=== PATIENT | male | born 1975 | race Caucasian/White ===

== ENCOUNTER 2021-05-13 12:13 | Inpatient (IN) | payer MEDICAID ==
[2021-05-13] VITALS (17 sets, daily range): BP systolic 106–149; BP diastolic 55–85
[~2021-05-13] VITALS: Ht 190.5 cm; Wt 143.6 kg
[~2021-05-13 12:13] MED LIST: CLIN-97 PO; PRED20TA PO
[2021-05-13 13:06] LABS: CLARITY,URINE CLEAR (Clear); COLOR,URINE YELLOW (Yellow); GLUCOSE, URINE NEGATIVE (Neg); KETONES,URINE NEGATIVE (Neg); LEUKOCYTE ESTERASE ,URINE NEGATIVE (Neg); NITRITES, URINE NEGATIVE (Neg); OCCULT BLOOD,URINE NEGATIVE (Neg); PROTEIN,URINE NEGATIVE (Neg); UA COLLECTION TYPE CLN CATCH MIDSTREAM; UROBILINOGEN,URINE 0.2 E.U/dL (0.2-1.0)
[2021-05-13 13:13] LABS: BASOPHILS # (AUTO) 0.1 X10'3 (0-0.2); BASOPHILS % (AUTO) 0.4 % (0-1); EOSINOPHILS # (AUTO) 0.1 X10'3 (0-0.9); EOSINOPHILS % (AUTO) 0.4 % (0-6); HEMATOCRIT 49.1 % (42.0-52.0); HEMOGLOBIN 16.8 g/dl (14.0-17.9); LYMPHOCYTES # (AUTO) 2.4 X10'3 (1.1-4.8); LYMPHOCYTES % (AUTO) 13.9 % (21-51); MEAN CORPUSCULAR HEMOGLOBIN 30.6 PG (27.0-31.0); MEAN CORPUSCULAR HGB CONC 34.2 g/dL (33.0-36.5); MEAN CORPUSCULAR VOLUME 89.3 FL (78-98); MONOCYTES # (AUTO) 0.9 X10'3 (0-0.9); MONOCYTES % (AUTO) 5.4 % (2-12); NEUTROPHILS # (AUTO) 13.6 X10'3 (1.8-7.7); NEUTROPHILS % (AUTO) 79.9 % (42-75); PLATELET COUNT 226 X10'3 (140-440); RED BLOOD COUNT 5.49 X10'6 (4.70-6.10); WHITE BLOOD COUNT 17.1 X10'3 (4.5-11.0)
[2021-05-13 13:29] LABS: ALANINE AMINOTRANSFERASE 30 U/L (12-78); ALBUMIN 3.8 G/DL (3.4-5.0); ALBUMIN/GLOBULIN RATIO 0.9 (1.1-1.5); ALKALINE PHOSPHATASE 75 IU/L (46-116); ANION GAP 9 (8-16); ASPARTATE AMINO TRANSFERASE 11 U/L (10-37); BILIRUBIN,TOTAL 0.6 MG/DL (0.1-1.0); BLOOD UREA NITROGEN 9 MG/DL (7-18); BUN/CREATININE RATIO 8.4 (5.4-32.0); CALCIUM 8.9 MG/DL (8.5-10.1); CHLORIDE 106 MMOL/L (99-107); CREATININE 1.07 MG/DL (0.60-1.10); GLUCOSE 134 MG/DL (70-104); POTASSIUM 4.4 MMOL/L (3.5-5.1); SODIUM 142 MMOL/L (135-145); TOTAL CARBON DIOXIDE 26.8 MMOL/L (24-32); TOTAL PROTEIN 7.9 G/DL (6.4-8.2); eGFR 74 ML/MIN
[2021-05-13 13:44] LABS: PARTIAL THROMBOPLASTIN TIME 29 SECONDS (22-32)
[2021-05-13] MEDS ORDERED: morphine 4 MG/ML inj SYRINge IV ONE (13:45)
[2021-05-13] MEDS ORDERED: normal saline 1000ML IV soln IVB ONE (13:45)
[2021-05-13] MEDS ORDERED: ondansetron/PF 4mg/2ml inj IV ONE (13:45)
[2021-05-13] MEDS ORDERED: NO HOME MEDS (13:59)
[2021-05-13] MEDS ORDERED: metroNIDAZOLE-Flagyl 500mg/NS 100 ML IV STA (14:06)
[2021-05-13] MEDS ORDERED: levoFLOXACIN-Levaquin 500mg/D5 100 ML IV ONE (14:10)
[2021-05-13 14:12] LABS: TOTAL CELLS COUNTED 100
[2021-05-13 14:13] LABS: PLATELET ESTIMATE NORMAL; TOXIC GRANULATION 1+
[2021-05-13] MEDS ORDERED: HYDROcodone/acetaminophen 10/325mg tab PO PRN ×2 (15:00→17:30)
[2021-05-13] MEDS ORDERED: HYDROcodone/acetaminophen 5mg/325mg tablet PO PRN ×2 (15:00→17:30)
[2021-05-13] MEDS ORDERED: ondansetron/PF 4mg/2ml inj IV PRN ×2 (15:00→16:15)
[2021-05-13] MEDS ORDERED: morphine 2 MG/ML inj. syringe IV PRN ×3 (15:00→16:15)
[2021-05-13] MEDS ORDERED: acetaminophen 325mg tablet PO PRN ×2 (15:00)
[2021-05-13] MEDS ORDERED: mag hydrox/Alum hydrox/simeth 30ml oral suspension PO PRN (15:00)
[2021-05-13] MEDS ORDERED: magnesium hydroxide 30ml (MOM) UD suspension PO PRN (15:00)
[2021-05-13] MEDS ORDERED: rocuronium 10mg/ml inj IV ONE (15:34)
[2021-05-13] MEDS ORDERED: propofol inj 20 ML IV ONE (15:34)
[2021-05-13 15:39] LABS: LACTATE DEHYDROGENASE 201 U/L (85-227)
[2021-05-13] MEDS ORDERED: LIDOcaine 1% 30ml preserv. free vial ONE (15:42)
[2021-05-13] MEDS ORDERED: BUPIVAcaine 0.5% inj/PF 30 ML ONE (15:43)
[2021-05-13] MEDS ORDERED: BUPIVAcaine 0.5% inj/PF 30 ml vial IJ ONE (15:50)
[2021-05-13] MEDS ORDERED: morphine 4 MG/ML inj SYRINge IV PRN (16:15)
[2021-05-13] MEDS ORDERED: proCHLORperazine 10 MG/2 ml inj IV PRN (16:15)
[2021-05-13] MEDS ORDERED: ringers solution, lacted 1,000 ML IV SCH (16:15)
[2021-05-13] MEDS ORDERED: meperidine/PF 25mg/ml syringe IV PRN ×2 (16:15)
[2021-05-13] MEDS ORDERED: midazolam 1 mg/ML 2ml injection ONE (16:19)
[2021-05-13] MEDS ORDERED: fentaNYL/PF 50MCG/1 ML 2ML syringe ONE (16:19)
[2021-05-13] MEDS ORDERED: ceFOXitin 1000 MG inj ONE ×2 (16:50→16:51)
[2021-05-13] MEDS ORDERED: dexamethasone sod phosphate 4mg/ml inj. ONE (17:16)
[2021-05-13] MEDS ORDERED: ondansetron/PF 4mg/2ml inj ONE (17:16)
[2021-05-13] MEDS ORDERED: sugammadex 200mg/2ml injection IV ONE (17:27)
[2021-05-13] MEDS ORDERED: glycopyrrolate 0.2mg/ml inj ONE (17:27)
[2021-05-13] MEDS ORDERED: neostigmine methylsulfate 1 MG/ML 10ml vial ONE (17:27)
[2021-05-13] MEDS: meperidine/PF 25mg/ml syringe IV PRN ×3 (17:42→18:45)
--- NOTE | 2021-05-13 18:40 | NUR ---
Patient in room [facility]. I have received report from RADHA Alamo and had the opportunity to ask questions and assume patient care.
--- NOTE | 2021-05-13 18:57 | NUR ---
Report called to receiving nurse. Transferred via BED Belongings . Special Issues communicated to receiving nurse. AWAKE AND ORIENTED. VITALS STABLE. DRESSINGS DI. STATES PAIN IMPRUVING. TO SURGICAL [facility] 344B AT THIS TIME.
[2021-05-13] MEDS: metroNIDAZOLE-Flagyl 500mg/NS 100 ML IV SCH (19:55)
[2021-05-13] MEDS: heparin, porcine 5000 units/ml vial SQ SCH (20:13)
[2021-05-13] MEDS: docusate sod 100mg capsule PO SCH (20:15)
[2021-05-13] MEDS: dextrose 5%-1/2 normal saline 1,000 ML IV SCH (20:15)
[2021-05-14] MEDS: metroNIDAZOLE-Flagyl 500mg/NS 100 ML IV SCH ×2 (00:37→09:06)
[2021-05-14] MEDS: dextrose 5%-1/2 normal saline 1,000 ML IV SCH ×2 (01:00→10:13)
[2021-05-14 04:48] VITALS: BP 130/67
--- NOTE | 2021-05-14 06:20 | NUR ---
Patient in room [facility]. I have received report from RADHA Jett & RADHA Kilpatrick and had the opportunity to ask questions and assume patient care.
[2021-05-14 06:30] VITALS: BP 140/69
--- NOTE | 2021-05-14 06:42 | NUR ---
Problems reprioritized. Patient report given, questions answered & plan of care reviewed with RADHA Soler..
[2021-05-14 06:49] LABS: ANION GAP 10 (8-16); BLOOD UREA NITROGEN 11 MG/DL (7-18); BUN/CREATININE RATIO 10.2 (5.4-32.0); CALCIUM 8.8 MG/DL (8.5-10.1); CHLORIDE 106 MMOL/L (99-107); CREATININE 1.08 MG/DL (0.60-1.10); GLUCOSE 171 MG/DL (70-104); SODIUM 140 MMOL/L (135-145); TOTAL CARBON DIOXIDE 23.6 MMOL/L (24-32); eGFR 74 ML/MIN
[2021-05-14 06:51] LABS: POTASSIUM 4.6 MMOL/L (3.5-5.1)
[2021-05-14 06:55] LABS: BASOPHILS # (AUTO) 0.1 X10'3 (0-0.2); BASOPHILS % (AUTO) 0.3 % (0-1); EOSINOPHILS % (AUTO) 0 % (0-6); HEMATOCRIT 44.2 % (42.0-52.0); LYMPHOCYTES # (AUTO) 0.9 X10'3 (1.1-4.8); LYMPHOCYTES % (AUTO) 5.5 % (21-51); MEAN CORPUSCULAR HEMOGLOBIN 30.7 PG (27.0-31.0); MEAN CORPUSCULAR VOLUME 90.4 FL (78-98); MEAN PLATELET VOLUME 9.3 FL (7.4-10.4); MONOCYTES # (AUTO) 0.7 X10'3 (0-0.9); MONOCYTES % (AUTO) 4.5 % (2-12); NEUTROPHILS # (AUTO) 14.1 X10'3 (1.8-7.7); NEUTROPHILS % (AUTO) 89.7 % (42-75); PLATELET COUNT 196 X10'3 (140-440); RED BLOOD COUNT 4.89 X10'6 (4.70-6.10); WHITE BLOOD COUNT 15.7 X10'3 (4.5-11.0)
[2021-05-14] MEDS ORDERED: levoFLOXACIN-Levaquin 500mg/D5 100 ML IV SCH (08:00)
[2021-05-14] MEDS: docusate sod 100mg capsule PO SCH (09:07)
[2021-05-14] MEDS: heparin, porcine 5000 units/ml vial SQ SCH (09:08)
[2021-05-14] MEDS ORDERED: HYDR-3965 PO (10:36)
[2021-05-14 11:00] VITALS: BP 112/69
[2021-05-14 15:04] LABS: D-DIMER 0.56 MG/L FEU (0-0.50)
[2021-05-14 15:09] LABS: C-REACTIVE PROTEIN 19.16 MG/DL (0.0-0.5)
--- NOTE | 2021-05-14 15:20 | NUR ---
DC inst provided to pt & pt's . IV DC'd, tip intact. All belongings sent w/pt. WC to vehicle.
== END 2021-05-14 15:24 | disposition home or self-care (01) | DRG 234 ==
LOC: ER 12:13 → ED HOLD 15:04 → SUR 3N 19:15
PROVIDERS: ADMIT Internal Medicine; ATTEND Internal Medicine
PROC: 0DTJ4ZZ Resection of Appendix, Percutaneous Endoscopic Approach (ICD-10-PCS; principal; 2021-05-13 16:16)
DX: K35.891 Other acute appendicitis without perforation, with gangrene (principal); E11.9 Type 2 diabetes mellitus without complications; Z20.822 Contact with and (suspected) exposure to COVID-19; I25.10 Atherosclerotic heart disease of native coronary artery without angina pectoris; F17.210 Nicotine dependence, cigarettes, uncomplicated; E66.01 Morbid (severe) obesity due to excess calories; Z79.899 Other long term (current) drug therapy; Z88.0 Allergy status to penicillin; Z90.49 Acquired absence of other specified parts of digestive tract; Z82.49 Family history of ischemic heart disease and other diseases of the circulatory system; Z83.3 Family history of diabetes mellitus; Z68.39 Body mass index [BMI] 39.0-39.9, adult
CPT/HCPCS: 36415; 71045; 74176; 80048; 80053; 81003; 83605; 83615; 84145; 85007; 85025; 85379; 85610; 85730; 86140; 87040; 87081; 87635; 93005; 96374; 96375; 99285; A4215; A4618; A7000; C9399; G0378; J0694; J1100; J1644; J1956; J2001; J2175; J2250; J2270; J2405; J2704; J2710; J3010; J3490; J7030; J7120